=== PATIENT | female | born 1955 | race Two or more races ===

== ENCOUNTER 2020-07-10 22:01 | Emergency (ER) | payer OTHER, BC ==
[2020-07-10 22:10] VITALS: BP 150/93; PULSE 86; TEMP 98.9; BMI 25.4
== END 2020-07-11 02:08 | disposition home or self-care (01) ==
LOC: JER 22:01
DX: M25.561 Pain in right knee (principal); M25.562 Pain in left knee; M79.642 Pain in left hand
CPT/HCPCS: 73110-TC-LT-FY; 73130-TC-LT-FY; 73562-TC-LT-FY; 73562-TC-RT-FY; 99283-25